=== PATIENT | female | born 1990 | race Caucasian/White ===

== ENCOUNTER 2018-03-02 17:14 | Emergency (ER) | payer MEDICAID, SELFPAY ==
[2018-03-02 17:19] VITALS: BP 132/84; PULSE 98; RESP 16; TEMP 36.8; O2SAT 100
--- NOTE | 2018-03-02 18:21 | ED.GENADUL_ITS ---
Disposition Clinical Impression: Skin infection Disposition: HOME Condition: Stable Instructions: Cellulitis (ED) Additional Instructions: Apply the antibiotic ointment to the affected areas 2-3 times daily. If you do not have any improvement in symptoms, or becomes worse, start the oral antibiotics. If at any time you have significant worsening of symptoms such as fever, significant increase of pain, redness or swelling, return immediately to the emergency department. Prescriptions: Cephalexin [Keflex] 500 mg PO QID 7 Days capsule Mupirocin 2% Oint. [Bactroban 2% Ointment] 1 gm TP TID #1 tube Medical Decision Making - Medical Decision Making 27-year-old female presents with 2 lesions on her left upper extremity and into her left axilla for the past 3 days. She is 10 days status post a tattoo over left upper arm. One lesion appears in the distal aspect of the tattoo and the other is on her chest wall under her axilla. They appear very similar. There is no fluctuance or induration. As they are mildly tender, erythematous with a central open partial, they appear likely infectious. There is no indication for acute drainage at this time as they are flat and a small area in center that can be open to drainage. Patient appears nontoxic. She is afebrile. Antibiotic ointment placed to areas. Patient given prescription for mupirocin to use 2-3 times daily. She was instructed to start the oral antibiotic if she has no improvement or she has worsening of symptoms with topical antibiotic. Patient was placed on care management list to arrange for a follow-up appointment for reevaluation within the next week. She was instructed to return here with any worsening symptoms per History of Present Illness - General Chief complaint: RashLesion Stated complaint: UNKNOWN Time Seen by Provider: 03/02/18 17:28 Source: patient Mode of arrival: ambulatory Limitations: no limitations - History of Present Illness Initial comments: Patient is a 27-year-old female who presents with 2 areas of redness on her left upper extremity and under her arm for the past 3 days. She had a tattoo on her left upper arm 10 days ago. Patient states she has had some pain. She admits to some clear drainage from the center of these areas. She denies any known fever. - Related Data Cephalexin [Keflex] 500 mg PO QID 7 Days capsule 03/02/18 Mupirocin 2% Oint. [Bactroban 2% Ointment] 1 gm TP TID #1 tube 03/02/18 Allergies Allergy/AdvReac Type Severity Reaction Status Date / Time No Known Allergies Allergy Unverified 03/02/18 17:24 Review of Systems Constitutional: denies: chills, fever Eyes: denies: eye pain ENT: denies: ear pain, dental pain Respiratory: denies: cough, shortness of breath Cardiovascular: denies: chest pain, dyspnea on exertion Gastrointestinal: denies: abdominal pain, nausea, vomiting Genitourinary: denies: urgency, dysuria, frequency Musculoskeletal: denies: back pain Skin: rash. denies: lesions Neurological: denies: headache, weakness, numbness Past Medical History - Past Medical History Medical history: no medical history Surgical history: no surgical history - Social History Smoking status: never smoker Alcohol use: occasionally Drug use: marijuana General Exam - General Limitations: no limitations General appearance: alert, in no apparent distress - Eye Eye exam: Present: EOMI - Cardiovascular Cardiovascular Exam: Present: regular rate, normal rhythm. Absent: bradycardia , tachycardia - GI/Abdominal GI/Abdominal exam: Present: soft, normal bowel sounds. Absent: distended, tenderness, guarding, rebound, rigid - Extremities Exam Extremities exam: Present: normal capillary refill, other (2 areas of approximately 2 x 3 cm of minimally raised erythema with a 3 mm central open wound draining clear drainage with one located at the distal aspect of the tattoo in the left upper arm and one located near the chest wall under the left axilla. Both lesions appear very similar. There is no fluctuance, induration, bleeding or pustules. Left radial pulse intact. ) - Neurological Exam Neurological exam: Present: alert, oriented X3 - Psychiatric Psychiatric exam: Present: normal affect Course Vital Signs - 24 hr 03/02/18 17:19 Temperature 98.2 F Pulse 98 H Respiratory 16 Rate Blood Pressure 132/84 Pulse Oximetry 100
--- NOTE | 2018-03-03 08:46 | PDOC.ERCMPRO ---
Care Management Progress Note 03/03-Dr. 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 Referral faxed to [facility] this am.
--- NOTE | 2018-03-03 08:48 | CMPROGNOTE_ITS ---
Care Management Progress Note 03/03-Dr. 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 Referral faxed to [facility] this am.
== END 2018-03-02 18:29 | disposition home or self-care (01) ==
LOC: ER 10-13 20:59
PROVIDERS: Emergency Provider Physician Assistant
DX: L08.9 Local infection of the skin and subcutaneous tissue, unspecified (principal)
CPT/HCPCS: 99283

== ENCOUNTER 2019-09-06 15:23 | Emergency (ER) | payer MEDICAID, SELFPAY ==
[2019-09-06 15:36] VITALS: BP 134/77; PULSE 101; RESP 18; TEMP 36.7; O2SAT 99
--- NOTE | 2019-09-06 15:54 | ED.GENADUL_ITS ---
Discharge Plan Disposition Patient Disposition: HOME Condition: Good Discharge Details Chief Complaint: Sorethroat Clinical Impression: Strep throat Primary Care Provider: Eileen Venegas ED Provider: Bart Ramirez Home Meds and New Rx's Prescriptions: New amoxicillin 500 mg capsule 500 mg PO BID Qty: 20 RF: 0 loratadine 10 mg capsule 10 mg PO DAILY Qty: 10 RF: 0 No Action mupirocin 22 GM ointment 1 gm Topical TID Qty: 1 RF: 0 cephalexin [Keflex] 500 MG capsule 500 mg PO QID 7 Days RF: 0 Discharge Instructions Instructions: Strep Throat (ED) Additional Instructions: At this time you have strep throat. Please take the antibiotic as directed. Please take the loratadine to help with the congestion. Please take Tylenol Motrin as needed for pain. If you notice any worsening of your symptoms, or any new symptoms such as vomiting, diarrhea, fever, chills, shortness of breath, chest pain, numbness, weakness, or fainting , please return immediately to the emergency department for reevaluation. Please follow up with your primary care provider as soon as possible for reassessment and reevaluation. As always, it was a pleasure participating in your medical care today. Referrals: Eileen Venegas [Primary Care Provider] - Discharge Data Discharge Date/Time-TO BE ENTERED AT DEPARTURE: 09/06/19 16:07 Medical Decision Making This is a 29-year-old female who presents with 2 days of sore throat, and mild ear pressure. Exam demonstrates erythema in the posterior oropharynx, no concerning red flags of tonsillar enlargement or peritonsillar abscess. No evidence of airway compromise whatsoever, no evidence of clinical meningitis. Signs and symptoms are clinically consistent with strep throat as her strep test is also positive. Will treat with amoxicillin, recommend continue Tylenol and Motrin, in addition to loratadine for congestion. Discussed red flags which to return I have extensively reviewed the treatment plan and discharge instructions with the patient and their family. I have addressed all patient concerns at this time. The patient and family was made aware of what symptoms to monitor for that would warrant a return to the emergency department. Discussed the plan with the patient and family, they demonstrate verbal understanding and agreement with our assessment and plan at this time. HPI General Date/Time Provider Initiated Documentation: 02/05/20 15:47 . HPI Narrative: This is a 29-year-old female who presents today for evaluation of sore throat, bilateral ear congestion for the last 2 days. She denies fever, headache or neck pain. She denies chest pain or cough. 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 She has no other complaints at this time. She denies any severe fatigue, or abdominal pain, nausea vomiting or diarrhea. Related Data Home Medications Medication Instructions Recorded Confirmed cephalexin [Keflex] 500 mg PO QID 7 Days capsule 03/02/18 mupirocin 1 gm TOPICAL TID #1 tube 03/02/18 amoxicillin 500 mg PO BID #20 cap 09/06/19 loratadine 10 mg PO DAILY #10 cap 09/06/19 Previous Rx's Medication Instructions Recorded cephalexin [Keflex] 500 mg PO QID 7 Days capsule 03/02/18 mupirocin 1 gm TOPICAL TID #1 tube 03/02/18 amoxicillin 500 mg PO BID #20 cap 09/06/19 loratadine 10 mg PO DAILY #10 cap 09/06/19 Allergies Allergy/AdvReac Type Severity Reaction Status Date / Time No Known Allergies Allergy Unverified 03/02/18 17:24 General Stated Complaint: Sorethroat EDMAR: 4 Review of Systems All systems reviewed & are unremarkable except as noted in HPI and below PFSH Social History Smoking/Tobacco Use Status: Current every day Tobacco Type: cigarettes Drug use: Occasionally Substance use type: marijuana Do you feel safe at home: Yes Do you feel safe in your relationship?: Yes Exam Narrative Exam Narrative: 1.Const: Well-nourished, Well-developed, appearing stated age 2.Eyes: PERRL, no conjunctival injection, and symmetrical lids. 3.ENT: Atraumatic external nose and ears. Moist MM. Neck: Symmetric, trachea midline, No thyromegaly. Tympanic membranes demonstrate a very small amount of clear fluid, no purulent effusion. No tympanic membrane rupture discharge. Posterior oropharynx is notably erythematous, minimal tonsillar enlargement, no unilateral uvular deviation or significant tonsillar swelling. Patient demonstrates good movement of cervical neck. There is no nuchal rigidity, no nuchal tenderness. Patient is able to flex the neck without any difficulty or significant pain. Negative Kernig's and Brudzinski sign. 4.CVS: +S1/S2, No murmurs or gallops. Peripheral pulses 2+ and equal in all extremities. Brisk capillary refill in all extremities. 5.RESP: Unlabored respiratory effort. Clear to auscultation bilaterally. No wheezes rales or rhonchi 6.GI: Soft, Nontender/Nondistended, No hepatosplenomegaly. No guarding or rebound. 7.MSK: Normocephalic/Atraumatic, Extremities w/o deformity or ttp No cyanosis or clubbing, Normal movement of all extremities 8.Skin: Warm, Dry. No rashes or lesions. 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 Sensation grossly intact, no focal neurologic deficits. 10.Psych: (AAO) x3. Appropriate mood and affect Course Vital Signs Vital signs: Vital Signs Temperature 36.7 C 09/06/19 15:36 Pulse 101 H 09/06/19 15:36 Respiratory Rate 18 09/06/19 15:36 Blood Pressure 134/77 09/06/19 15:36 Pulse Oximetry 99 09/06/19 15:36 Temperature 36.7 C 09/06/19 15:36 Temperature Source Skin 09/06/19 15:36 Pulse 101 H 09/06/19 15:36 Respiratory Rate 18 09/06/19 15:36 Respiratory Effort Non-Labored 09/06/19 15:38 Blood Pressure 134/77 09/06/19 15:36 Blood Pressure Position Sitting 09/06/19 15:36 Pulse Oximetry 99 09/06/19 15:36 Oxygen Delivery Method Room Air 09/06/19 15:36 Oxygen Flow Rate 0 09/06/19 15:36 Pain Level 7 09/06/19 15:36 Lab/Test Results Lab/Test Results: POC Strep Test-GRAYSON(Rapid) Start: 09/06/19 15:51 Freq: Status: Active Protocol: Document 09/06/19 15:51 DB (Rec: 09/06/19 15:51 DB [id number]) Strep test-GRAYSON(Rapid)-POC POC-Strep test-GRAYSON (Rapid) Positive POC-Strep test-GRAYSON (Rapid) Positive
== END 2019-09-06 16:07 | disposition home or self-care (01) ==
PROVIDERS: Emergency Provider Student in an Organized Health Care Education/Training Program; PCP Nurse Practitioner Family
DX: J02.0 Streptococcal pharyngitis (principal); H93.8X3 Other specified disorders of ear, bilateral
CPT/HCPCS: 87880; 99283

== ENCOUNTER 2020-03-29 11:51 | Outpatient (CLI) | payer MEDICAID, SELFPAY ==
[2020-04-01 08:18] LABS: SARS-CoV-2 RNA Undetected (Undetected); SARS-CoV-2 Specimen Source Nasopharynx
== END 2020-03-29 12:11 ==
PROVIDERS: PCP Nurse Practitioner Family; Visit Provider Nurse Practitioner Family
DX: Z11.59 Encounter for screening for other viral diseases (principal); J00 Acute nasopharyngitis [common cold]
CPT/HCPCS: U0003

== ENCOUNTER 2020-06-17 16:58 | Outpatient (REF) | payer MEDICAID, SELFPAY ==
[2020-06-20 14:48] LABS: Patient Race White; SARS-CoV-2 RNA Undetected (Undetected); SARS-CoV-2 Specimen Source Nasal
== END 2020-06-17 17:18 ==
LOC: NCHCN 16:58
PROVIDERS: PCP Nurse Practitioner Family; Visit Provider Nurse Practitioner Family
DX: Z20.828 Contact with and (suspected) exposure to other viral communicable diseases (principal)
CPT/HCPCS: U0003

== ENCOUNTER 2021-09-19 12:24 | Outpatient (REF) | payer MEDICAID, SELFPAY ==
--- NOTE | 2021-09-19 11:15 | PAPFT_PTH ---
PATIENT: Princess Cage LOC: [facility] U#:[id number] AGE/SX: 31/F ROOM: RE09/19/[address]: Eileen Venegas : 1990 BED: DIS: 09/19/2021 SPEC #: [id number] RECD: 09/19/21 17:36 STATUS: DARION REPerfecto #: [id number] SARA: 09/19/21 11:[address]: Eileen Venegas DEPT: [facility] Cytology RECD BY: Kayley Carter Tissues: 1 - CX/ENDOCX FOR PAP SMEARS Procedures: PAP THIN PREP/UVM Screening Comments: [id number] (CHLAMYDIA/GC)
[2021-09-22 15:34] LABS: Chlamydia Result Negative (Negative); GC Result Negative (Negative)
== END 2021-09-19 12:25 | disposition home or self-care (01) ==
LOC: NCHCN 12:24
PROVIDERS: PCP Nurse Practitioner Family; Visit Provider Nurse Practitioner Family
DX: Z12.4 Encounter for screening for malignant neoplasm of cervix (principal); Z11.3 Encounter for screening for infections with a predominantly sexual mode of transmission
CPT/HCPCS: 87491; 87591; 88142

== ENCOUNTER 2022-04-30 16:57 | Outpatient (REF) | payer MEDICAID, SELFPAY ==
[2022-04-30 18:36] LABS: Calculated LDL 188 mg/dL (<100); Cholesterol 303 mg/dL (<200); HDL Cholesterol 96 mg/dL (40-60); Triglyceride 99 mg/dL (<150)
[2022-05-05 10:11] LABS: Factor V Leiden(R506Q) Mut Negative (Negative)
== END 2022-04-30 16:58 | disposition home or self-care (01) ==
LOC: NCHCN 16:57
PROVIDERS: PCP Nurse Practitioner Family; Visit Provider Nurse Practitioner Family
DX: D68.9 Coagulation defect, unspecified (principal); E66.9 Obesity, unspecified
CPT/HCPCS: 80061; 81241

== ENCOUNTER 2023-01-30 15:18 | Emergency (ER) | payer MEDICAID, SELFPAY ==
[2023-01-30 15:20] VITALS: BP 162/84; PULSE 111; RESP 16; TEMP 37.2; O2SAT 97
--- NOTE | 2023-01-30 15:30 | DI.RAD_ITS ---
Exam(s) XR ANKLE RT COMPLETE EXAM: XR ANKLE RT COMPLETE CLINICAL HISTORY: right ankle pain. TECHNIQUE: 2D digital imaging was performed of the right ankle. Four images were obtained. AP, lat eral and oblique views were obtained. COMPARISON: No exams were available for comparison FINDINGS: BONES: There is an acute comminuted fracture of the distal fibula. The fracture line medially is at the level of the ankle mortise. There is widening of the medial joint space. No bony destructive le nolan is seen. JOINTS: The ankle mortise is normally aligned. SOFT TISSUE: There is soft tissue swelling of the ankle particularly laterally. IMPRESSION: 1. Acute comminuted fracture of the distal fibula as described. 2. There is mild widening of the medial ankle mortise. DATA REPOSITORY: RADIATION DOSE DELIVERED:
--- NOTE | 2023-01-30 15:43 | ED.GENADUL_ITS ---
Discharge Plan Disposition Patient Disposition: Home Condition: Stable Discharge Details Clinical Impression: Closed right fibular fracture Primary Care Provider: Eileen Venegas ED Provider: Sarath Booker Home Meds and New Rx's Prescriptions: Continued fluoxetine 40 mg capsule 20 mg PO DAILY loperamide 2 mg capsule 2 mg PO Q6H PRN albuterol sulfate [Ventolin HFA] 90 mcg/actuation HFA aerosol inhaler 2 puff inhalation Q6H PRN albuterol sulfate [Ventolin HFA] 90 mcg/actuation HFA aerosol inhaler 2 puff inhalation Q6H PRN mupirocin 22 GM ointment 1 g Topical TID Qty: 1 0RF Discharge Instructions Instructions: Leg Fracture (ED) Additional Instructions: call orthopedics for an appointment for follow up if you feel more ill or have severe worsening pain return to the emergency department Referrals: Krishna Everett MD [ [facility] STAFF PHYSICIAN] - Medical Decision Making 32 yo female who comes in with right ankle pain. She states on she got angry and kicked a trash can while wearing boots with her right foot. Denies falls or other injuries, has had lateral ankle pain since so came here today. Her right ankle is swollen and has ecchymosis. She has tenderness over the lateral malleolus, she does have intact rom of the ankle and normal sensation and pulses in the foot and has no tenderness in the foot, toes. negative t hompson test. Suspect sprain vs contusion, will obtain xrays of the ankle to evaluate for fracture. xray on my read shows fibula fracture, pt stable, will place in walking boot and crutches to use, will refer to ortho, return precautions given Differential Diagnosis Differential Diagnosis: sprain, strain, fracture Imaging Data Radiologic Study: Attestation: I personally reviewed and interpreted this imaging study as follows: Imaging: X-Ray My impression: fibula fracture HPI General Date/Time Provider Initiated Documentation: 01/30/23 15:31 . Limitations to Documentation: no limitations . Information obtained by: patient . History of Present Illness 32 year old F presents to the emergency department with the chief complaint of right ankle pain, described as moderate, Patient reports no radiation. Patient started experiencing this day(s) (2) and it has been constant. Rest improves symptom(s), Movement worsens symptoms . Patient notes no other symptoms.. Patient did receive the following treatments prior to arrival, NSAID Related Data Home Medications Medication Instructions Recorded Confirmed mupirocin 2 % topical ointment 1 g topical TID #1 tube 03/02/18 11/25/21 albuterol sulfate 90 mcg/actuation 2 puff inhalation Q6H PRN 10/16/21 11/25/21 aerosol inhaler (Ventolin HFA) fluoxetine 40 mg capsule 20 mg PO DAILY 10/16/21 01/30/23 loperamide 2 mg capsule 2 mg PO Q6H PRN 10/16/21 albuterol sulfate 90 mcg/actuation 2 puff inhalation Q6H PRN 10/20/21 01/30/23 aerosol inhaler (Ventolin HFA) Previous Rx's Medication Instructions Recorded mupirocin 2 % topical ointment 1 g topical TID #1 tube 03/02/18 Allergies Allergy/AdvReac Type Severity Reaction Status Date / Time latex gloves Allergy Uncoded 01/30/23 15:28 General Stated Complaint: Orthopedic EDMAR: 3 Review of Systems All systems reviewed & are unremarkable except as noted in HPI and below Constitutional Constitutional: Denies chills, Denies fever(s) and Denies weakness Eyes Eyes: Denies loss of vision ENT Ears, Nose, Mouth, and Throat: Denies change in voice Cardiovascular Cardiovascular: Denies chest pain and Denies dyspnea Respiratory Respiratory: Denies cough and Denies dyspnea Gastrointestinal Gastrointestinal: Denies abdominal pain, Denies nausea and Denies vomiting Neurologic Neurologic: Denies loss of vision and Denies weakness PFSH All Active Problems (Updated 01/30/23 @ 16:24 by Sarath Booker MD) Closed right fibular fracture (Acute) Crepitus of right TMJ on opening of jaw (Acute) Tobacco abuse (Acute) Abnormal auditory perception of right ear (Acute) Strep throat (Acute) Medical History Breast lesion Clotting disorder Depression Diarrhea Hallux valgus Hearing deficit Pain in right hip Pelvic pain Rectal pain Seborrhea capitis Skin irritation Smoker Suicidal thoughts Surgical History History of wisdom tooth extraction Social History Smoking/Tobacco Use Status: Current every day Tobacco Type: cigarettes Smoking packs per day: 1 Smoking cigarettes per day: 20.0 Years smoked: 10 Smoking pack-years: 10.00 Smoking risk assessment performed?: Yes Alcohol Intake: current Alcohol Intake frequency: 0-2 drinks per day Drug use: Occasionally Substance use type: marijuana Pets and animals: Yes Pets and animals: cat(s) and dog(s) Do you feel safe at home: Yes Do you feel safe in your relationship?: Yes Exam Const General: no acute distress Orientation: alert HENMT Head: normal to inspection Ears: external ears normal General nose exam: external nose normal Mouth: moist mucous membranes Eyes General: appearance normal, both eyes and all related structures Neck Neck: normal visual inspection Resp Effort & Inspection: normal respiratory effort and able to speak in complete sentences Cardio Rate: regular rate Skin General skin exam: no rashes or lesions noted Neuro General: patient alert and patient oriented x3 Extrem General: full ROM and capillary refill normal Psych Mental Status: mental status grossly normal Course Vital Signs Vital signs: Vital Signs Temperature 37.2 C 01/30/23 15:20 Pulse 111 H 01/30/23 15:20 Respiratory Rate 16 01/30/23 15:20 Blood Pressure 162/84 H 01/30/23 15:20 Pulse Oximetry 97 01/30/23 15:20 Temperature 37.2 C 01/30/23 15:20 Temperature Source Skin 01/30/23 15:20 Pulse 111 H 01/30/23 15:20 Respiratory Rate 16 01/30/23 15:20 Respiratory Effort Normal 01/30/23 15:25 Blood Pressure 162/84 H 01/30/23 15:20 Pulse Oximetry 97 01/30/23 15:20 Oxygen Delivery Method Room Air 01/30/23 15:20 Oxygen Flow Rate 0 01/30/23 15:20 PAWSS Have you Been Recently Intoxicated or Drunk Within the Last 30 days?: Yes Have you Ever Experienced Previous Episodes of Alcohol Withdrawal?: No Have you ever Experienced Withdrawal Seizures?: No Have you ever Experienced Delirium Tremens(DT)s?: No Have you ever undergone Alcohol Rehabilitation Treatment (i.e, inpt ot outpatient treatment programs)?: No Have you ever Experienced Blackouts?: No Have you ever Combined Alcohol with other Downers within the last 90 days?: No Have you ever Combined Alcohol with any other Substance of Abuse during the last 90 days?: Yes Positive Blood Alcohol level on Presentation? [PCS.BAL]: No Evidence of Increased Autonomic Activity (i.e. HR>120, tremor, sweating, agitation, nausea)?: No Result: 3
[2023-01-30] MEDS: Acetaminophen 500 MG TAB 1000 MG PO (15:44)
--- NOTE | 2023-01-30 16:41 | DI.VRAD_ITS ---
PROCEDURE INFORMATION: Exam: XR Right Ankle Exam date and time: 01/30/2023 3:57 PM Age: 32 years old Clinical indication: Other: Right ankle pain TECHNIQUE: Imaging protocol: Radiologic exam of the right ankle. 4image(s) are provided. Views: 3 or more views. COMPARISON: No relevant prior studies available. FINDINGS: Bones/joints: Ankle mortise alignment is maintained. There is an oblique fracture demonstrated of the distal fibular shaft. This demonstrates some separation and slight fragmentation of the superior most aspect of the fracture fragment best visualized on the lateral view. The adjacent tibial margins appear maintained. There is some subtle widening although may be rotation related about the medial aspect of the ankle mortise. Some ligamentous injury could also present in this fashion. There is some questionable curvilinear calcification of the talus margin on the oblique view although may be averaging related. No other displaced fracture or dislocation is appreciated. Soft tissues: There is soft tissue swelling demonstrated with lateral predominance. No radiopaque foreign body or subcutaneous emphysema is appreciated. IMPRESSION: There is an oblique and slightly fracture of the distal fibular shaft demonstrated with overall soft tissue swelling. Ankle mortise alignment appears grossly maintained although there appears to be subtle widening of the medial aspect and could also be seen with some ligamentous injury. Dictated and Authenticated by: Harman Henderson MD. Ordering:ISRAEL Clemens MD
[2023-01-30 16:52] VITALS: PULSE 88; RESP 17; O2SAT 97
== END 2023-01-30 16:56 | disposition home or self-care (01) ==
PROVIDERS: Emergency Provider Emergency Medicine; PCP Nurse Practitioner Family
DX: M25.571 Pain in right ankle and joints of right foot; S82.401A Unspecified fracture of shaft of right fibula, initial encounter for closed fracture; W22.8XXA Striking against or struck by other objects, initial encounter
CPT/HCPCS: 99283; 73610

== ENCOUNTER 2023-02-04 10:08 | Outpatient (CLI) | payer MEDICAID, SELFPAY ==
--- NOTE | 2023-02-04 08:53 | DI.RAD_ITS ---
Exam(s) XR ANKLE RT COMPLETE EXAM: XR ANKLE RT COMPLETE CLINICAL HISTORY: F/U FRACTURE. TECHNIQUE: 2D digital imaging was performed. Three views. COMPARISON: CR,XR XR ANKLE RT COMPLETE from 01/30/2023 FINDINGS: There has been no change in the alignment of the distal fibular fracture. A gravity stress view was performed which shows some widening of the medial ankle mortise. Soft tissue swelling remains presen t. DATA REPOSITORY: RADIATION DOSE DELIVERED:
== END 2023-02-04 10:09 | disposition home or self-care (01) ==
LOC: DIORS 10:08
PROVIDERS: PCP Nurse Practitioner Family; Referring Provider Nurse Practitioner Family; Visit Provider Physician Assistant
DX: S82.451D Displaced comminuted fracture of shaft of right fibula, subsequent encounter for closed fracture with routine healing (principal); X58.XXXD Exposure to other specified factors, subsequent encounter; R22.41 Localized swelling, mass and lump, right lower limb
CPT/HCPCS: 73610

== ENCOUNTER 2023-02-12 11:51 | Outpatient (CLI) | payer MEDICAID, SELFPAY ==
--- NOTE | 2023-02-12 09:15 | DI.RAD_ITS ---
Exam(s) XR ANKLE RT COMPLETE EXAM: XR ANKLE RT COMPLETE CLINICAL HISTORY: closd right fib fx. TECHNIQUE: 2D digital imaging was performed. COMPARISON: CR XR ANKLE RT COMPLETE from 02/04/2023 FINDINGS: Four views. Previously described distal fibular fracture appears unchanged and without further displacement. Mor tise appears unchanged. Talar dome unremarkable. IMPRESSION: No radiographic change compared to 02/04/2023. DATA REPOSITORY: RADIATION DOSE DELIVERED:
== END 2023-02-12 11:52 | disposition home or self-care (01) ==
LOC: DIORS 11:51
PROVIDERS: PCP Nurse Practitioner Family; Visit Provider Student in an Organized Health Care Education/Training Program
DX: S82.451D Displaced comminuted fracture of shaft of right fibula, subsequent encounter for closed fracture with routine healing (principal); X58.XXXD Exposure to other specified factors, subsequent encounter
CPT/HCPCS: 73610

== ENCOUNTER 2023-02-19 08:44 | Outpatient (CLI) | payer MEDICAID, SELFPAY ==
--- NOTE | 2023-02-19 08:00 | DI.RAD_ITS ---
Exam(s) XR ANKLE RT COMPLETE EXAM: XR ANKLE RT COMPLETE INDICATION: f/u R FIB FX. COMPARISON: CR XR ANKLE RT COMPLETE from 02/12/2023 TECHNIQUE: 2D digital imaging was performed. Two views. FINDINGS: There has been no change in the alignment of the distal fibular fracture. Some lateral soft tissue s welling remains present. No new abnormalities. DATA REPOSITORY: RADIATION DOSE DELIVERED:
== END 2023-02-19 08:45 | disposition home or self-care (01) ==
LOC: DIORS 08:44
PROVIDERS: PCP Nurse Practitioner Family; Referring Provider Nurse Practitioner Family; Visit Provider Physician Assistant
DX: S82.451D Displaced comminuted fracture of shaft of right fibula, subsequent encounter for closed fracture with routine healing; W19.XXXD Unspecified fall, subsequent encounter
CPT/HCPCS: 73610

== ENCOUNTER 2023-03-18 10:16 | Outpatient (CLI) | payer MEDICAID, SELFPAY ==
--- NOTE | 2023-03-18 09:00 | DI.RAD_ITS ---
Exam(s) XR ANKLE RT COMPLETE EXAM: XR ANKLE RT COMPLETE CLINICAL HISTORY: f/u R FIB FX. TECHNIQUE: 2D digital imaging was performed. COMPARISON: CR XR ANKLE RT COMPLETE from 02/19/2023 FINDINGS: 3 views Appearance of the fracture in distal fibula is unchanged. No widening of the ankle mortise evident o n these nonstress views. Talar dome unremarkable. Medial malleolus and posterior malleolus unremark able. No osseous tarsal coalition. IMPRESSION: No radiographic change compared to 02/19/2023. DATA REPOSITORY: RADIATION DOSE DELIVERED:
== END 2023-03-18 10:17 | disposition home or self-care (01) ==
LOC: DIORS 10:16
PROVIDERS: PCP Nurse Practitioner Family; Referring Provider Nurse Practitioner Family; Visit Provider Student in an Organized Health Care Education/Training Program
DX: S82.451D Displaced comminuted fracture of shaft of right fibula, subsequent encounter for closed fracture with routine healing (principal); X58.XXXD Exposure to other specified factors, subsequent encounter
CPT/HCPCS: 73610

== ENCOUNTER 2023-04-18 23:33 | Emergency (ER) | payer MEDICAID, SELFPAY ==
[2023-04-18 23:35] VITALS: BP 162/125; PULSE 117; RESP 16; TEMP 37.1; O2SAT 98
--- NOTE | 2023-04-18 23:36 | ED.GENADUL_ITS ---
Discharge Plan Disposition Patient Disposition: Home Discharge Details Clinical Impression: Alcohol intoxication, Laceration of forearm, right Primary Care Provider: Eileen Venegas ED Provider: Mariluz Cruz Home Meds and New Rx's Prescriptions: Continued fluoxetine 40 mg capsule 20 mg PO DAILY loperamide 2 mg capsule 2 mg PO Q6H PRN albuterol sulfate [Ventolin HFA] 90 mcg/actuation HFA aerosol inhaler 2 puff inhalation Q6H PRN albuterol sulfate [Ventolin HFA] 90 mcg/actuation HFA aerosol inhaler 2 puff inhalation Q6H PRN mupirocin 22 GM ointment 1 g Topical TID Qty: 1 0RF Discharge Instructions Instructions: Laceration (ED), Alcohol Intoxication (ED) Additional Instructions: Stable 7 to 10 days. Return for fever 100.4 or above, redness around laceration spreading up the arm, any other concerns. Return also for severe headache chest pain, belly pain, numbness, weakness, or any other concerns. Medical Decision Making The patient and her neighbor were updated on her test results which were negative. The patient was advised to have torin removed in 7-10 days. She will return for any symptoms of trauma which were discussed with her. Imaging Data Radiologic Study: Radiologist's impression: Neck and head CT showed no acute injury. HPI General Date/Time Provider Initiated Documentation: 04/18/23 23:36 . HPI Narrative: This 32-year-old female patient is brought in by a friend after falling down a flight of stairs. I asked the patient why she fell down the stairs and she said that she has been drinking tonight. She has a 3 to 4 cm laceration of the posterior aspect of the right forearm. This is gapinginto the fat. No tendons are visible. Her tetanus is up-to-date. She denies any other injury. She says she does not think that she had LOC. She initially told me that her boyfriend had witnessed the fall and he told me that he was not there when she fell. He told me that she called him to come and give her a ride. She has no headache, neck pain, or other injuries or complaints. She has been on anxiety and took her anxiety medicine this morning because she forgot Related Data Home Medications Medication Instructions Recorded Confirmed mupirocin 2 % topical ointment 1 g topical TID #1 tube 03/02/18 03/18/23 albuterol sulfate 90 mcg/actuation 2 puff inhalation Q6H PRN 10/16/21 03/18/23 aerosol inhaler (Ventolin HFA) fluoxetine 40 mg capsule 20 mg PO DAILY 10/16/21 03/18/23 loperamide 2 mg capsule 2 mg PO Q6H PRN 10/16/21 03/18/23 albuterol sulfate 90 mcg/actuation 2 puff inhalation Q6H PRN 10/20/21 03/18/23 aerosol inhaler (Ventolin HFA) Previous Rx's Medication Instructions Recorded mupirocin 2 % topical ointment 1 g topical TID #1 tube 03/02/18 Allergies Allergy/AdvReac Type Severity Reaction Status Date / Time latex gloves Allergy Uncoded 03/18/23 09:24 General EDMAR: 3 Review of Systems Constitutional Constitutional: Denies chills, Denies fever(s), Denies headache(s) and Denies weakness Eyes Eyes: Denies diplopia and Reports other (no redness) ENT Ears, Nose, Mouth, and Throat: Denies otalgia, Denies headache(s), Denies nasal congestion, Denies nasal discharge, Denies neck pain and Denies sore throat Cardiovascular Cardiovascular: Denies chest pain, Denies palpitations and Denies dyspnea Respiratory Respiratory: Denies cough and Denies dyspnea Gastrointestinal Gastrointestinal: Denies abdominal pain, Denies diarrhea, Denies nausea and Den ies vomiting Genitourinary Genitourinary: Denies dysuria Musculoskeletal Musculoskeletal: Denies myalgias, Denies muscle weakness, Denies neck pain, Denies numbness and Reports other (edema) Integumentary/Breasts Skin/Breast: Denies change in pigmentation and Denies rash Neurologic Neurologic: Denies headache(s), Denies numbness and Denies weakness Endocrine Endocrine: Denies palpitations PFSH All Active Problems (Updated 04/19/23 @ 01:29 by Mariluz Cruz MD) Alcohol intoxication (Acute) Laceration of forearm, right (Acute) Crepitus of right TMJ on opening of jaw (Acute) Tobacco abuse (Acute) Abnormal auditory perception of right ear (Acute) Strep throat (Acute) Medical History Breast lesion Clotting disorder Depression Diarrhea Hallux valgus Hearing deficit Pain in right hip Pelvic pain Rectal pain Seborrhea capitis Skin irritation Smoker Suicidal thoughts Surgical History History of wisdom tooth extraction Social History Smoking/Tobacco Use Status: Current every day Tobacco Type: cigarettes Smoking packs per day: 1 Smoking cigarettes per day: 20.0 Years smoked: 10 Smoking pack- years: 10.00 Smoking risk assessment performed?: Yes Alcohol Intake: current Alcohol Intake frequency: 0-2 drinks per day Drug use: Occasionally Substance use type: marijuana Pets and animals: Yes Pets and animals: cat(s) and dog(s) Do you feel safe at home: Yes Do you feel safe in your relationship?: Yes Exam Const General: no acute distress, well developed, well groomed and not in acute distress Nutritional Appearance: well nourished Orientation: alert and oriented x3 HENMT Head: normocephalic and atraumatic Ears: external ears normal General nose exam: external nose normal and nares normal Face and sinus: normal facial exam and sinuses nontender Mouth: oropharynx normal and moist mucous membranes Throat: posterior oropharynx normal Eyes Conjunctivae: other (mildly injected) Pupils: PERRL EOM: EOM intact bilaterally Neck Neck: full ROM, supple and other (collar placed on arrival) Chest Chest: normal inspection of the chest and normal palpation of entire chest wall Resp Effort & Inspection: normal respiratory effort Auscultation: clear to auscultation bilaterally Cardio Rate: regular rate Rhythm: regular rhythm Heart Sounds: no murmurs and no rubs GI Inspection: normal to inspection Palpation: soft, nontender and other (non distended) Auscultation: normal bowel sounds Back/Spine/Pelvis Back: no CVA tenderness Cervical Spine: No cervical spinal tenderness Thoracic/Lumbar Spine: No thoracic spinal tenderness and No lumbar spinal tenderness Pelvis: no pain with anterior-posterior compression Skin General skin exam: no rashes or lesions noted (except 3-4 cm gaping lac over posterior R forearm) and other (pink, warm, dry) Trauma: laceration (as noted) Neuro General: patient alert, patient awake and patient oriented x3 Cranial Nerves: PERRL and EOM intact bilaterally Speech: speech normal Gait: normal gait Motor: strength 5/5 throughout and other ([place]) Sensory Exam: no sensory deficits noted Extrem General: normal to inspection and full ROM Right upper extremity: full ROM (NTP) and elbow/forearm (3-4 cm lac posteriorly at prox jnct) Left upper extremity: normal to inspection and full ROM (NTP) Right lower extremity: normal to inspection and full ROM (NTP) Left lower extremity: normal to inspection and full ROM (NTP) Psych Mental Status: mental status grossly normal Speech and Movement: speech and movement normal Affect: normal affect
--- NOTE | 2023-04-18 23:51 | DI.CT_ITS ---
Exam(s) CT HEAD CERVICAL SPINE WO EXAM: CT HEAD CERVICAL SPINE WO CLINICAL HISTORY: fall down stairs, ETOH. TECHNIQUE: Imaging Protocol: Axial computed tomography images with coronal and sagittal reformatted images were created and reviewed COMPARISON: No exams were available for comparison FINDINGS: Head CT Ventricles and Extra axial spaces: Normal in size and morphology for the patient's age. Hemorrhage: None. Cerebral parenchyma: Normal. Midline shift: None. Brainstem/Cerebellum: Normal. Calvarium: Normal. Visualized Paranasal sinuses/Mastoids: Clear. Soft tissues: Unremarkable. Cervical Spine CT BONES: Vertebral body heights are maintained. Alignment is normal. There is no evidence of acute frac ture. No degenerative disc changes and facet degenerative changes are seen . SOFT TISSUES: No paraspinal hematoma. The airway appears intact. No pneumothorax is seen at the lung apices. IMPRESSION: Head CT: No acute abnormality. C-spine CT: no acute abnormality. RADIATION DOSE DELIVERED: 1,330.33mGy.cm Total DLP DATA REPOSITORY: All CT scans at this facility are submitted to the National Radiology Data Registry (NRDR) Dose Index Registry (DIR) with the [employer] (A[employer]). RADIATION OPTIMIZATION: All CT scans at this facility use at least one of these dose optimization te chniques: automated exposure control; mA and/or kV adjustment per patient size (includes targeted exa ms where dose is matched to clinical indication); or iterative reconstruction.
--- NOTE | 2023-04-19 01:23 | DI.VRAD_ITS ---
PROCEDURE INFORMATION: Exam: CT Head Without Contrast Exam date and time: 04/19/2023 12:04 AM Age: 32 years old Clinical indication: Injury or trauma; Blunt trauma (contusions or hematomas); Injury date: 04/18/23; Injury details: Fall down stairs, ETOH TECHNIQUE: Imaging protocol: Computed tomography of the head without contrast. Radiation optimization: All CT scans at this facility use at least one of these dose optimization techniques: automated exposure control; mA and/or kV adjustment per patient size (includes targeted exams where dose is matched to clinical indication); or iterative reconstruction. COMPARISON: No relevant prior studies available. FINDINGS: Brain: No acute intracranial hemorrhage, mass-effect, midline shift, or extra-axial collection is seen. The christianson white matter differentiation appears preserved. Cerebral ventricles: The ventricular system and basilar cisterns appear appropriate in size and configuration. Paranasal sinuses: The visualized paranasal sinuses appear well-aerated. Mastoid air cells: The mastoid air cells appear well-aerated. Auditory system: The middle ear cavities appear clear. Orbital cavities: The globes and intraorbital structures appear grossly intact. Bones/joints: The bony calvarium appears intact. No depressed skull fracture is seen. Soft tissues: No gross focal scalp hematoma is seen. IMPRESSION: No acute intracranial hemorrhage or depressed skull fracture. PROCEDURE INFORMATION: Exam: CT Cervical Spine Without Contrast Exam date and time: 04/19/2023 12:04 AM Age: 32 years old Clinical indication: Injury or trauma; Blunt trauma (contusions or hematomas); Injury date: 04/18/23; Injury details: Fall down stairs, ETOH TECHNIQUE: Imaging protocol: Computed tomography of the cervical spine without contrast. Radiation optimization: All CT scans at this facility use at least one of these dose optimization techniques: automated exposure control; mA and/or kV adjustment per patient size (includes targeted exams where dose is matched to clinical indication); or iterative reconstruction. COMPARISON: No relevant prior studies available. FINDINGS: Bones/joints: No acute cervical fracture or malalignment is seen. No significant cervical stenosis or foraminal narrowing is demonstrated. Lungs: The lung apices appear clear. Thyroid: The thyroid gland appears normal in size. Soft tissues: Within the limits of the exam, no gross soft tissue fluid collection is seen in the neck. IMPRESSION: No acute cervical fracture or malalignment is seen. Dictated and Authenticated by: Ayaz Spence MD. Ordering:DANIEL Mcgraw MD
[2023-04-19 01:34] VITALS: BP 132/72; PULSE 72; RESP 16; O2SAT 98
== END 2023-04-19 01:48 | disposition home or self-care (01) ==
PROVIDERS: Emergency Provider Emergency Medicine; PCP Nurse Practitioner Family
DX: S51.811A Laceration without foreign body of right forearm, initial encounter (principal); W26.8XXA Contact with other sharp object(s), not elsewhere classified, initial encounter; F10.929 Alcohol use, unspecified with intoxication, unspecified
CPT/HCPCS: 70450; 72125

== ENCOUNTER 2023-04-29 14:00 | Outpatient (CLI) | payer MEDICAID, SELFPAY ==
--- NOTE | 2023-04-29 13:45 | DI.RAD_ITS ---
Exam(s) XR ANKLE RT COMPLETE EXAM: XR ANKLE RT COMPLETE CLINICAL HISTORY: F/U FRACTURE. TECHNIQUE: 2D digital imaging was performed. COMPARISON: CR XR ANKLE RT COMPLETE from 03/18/2023 FINDINGS: 3 views The previously described fracture of the distal fibula appears stable. There is some mild callus for mation. Fracture line still evident but no further displacement nor significant widening of the ankl e mortise. Talar dome unremarkable. IMPRESSION: Appearance. DATA REPOSITORY: RADIATION DOSE DELIVERED:
== END 2023-04-29 14:01 | disposition home or self-care (01) ==
LOC: DIORS 14:01
PROVIDERS: PCP Nurse Practitioner Family; Visit Provider Physician Assistant
DX: S82.451D Displaced comminuted fracture of shaft of right fibula, subsequent encounter for closed fracture with routine healing (principal); X58.XXXD Exposure to other specified factors, subsequent encounter
CPT/HCPCS: 73610

== ENCOUNTER 2025-07-10 16:45 | Outpatient (REF) | payer BC, MEDICAID, SELFPAY ==
--- NOTE | 2025-07-10 14:50 | PAPFT_PTH ---
PATIENT: Princess Cage LOC: [facility]#:[id number] AGE/SX: 34/F ROOM: RE07/10/[address]: Eileen Venegas : 1990 BED: DIS: 07/10/2025 SPEC #: [id number] RECD: 07/11/25 13:06 STATUS: DARION REPerfecto #: [id number] SARA: 07/10/25 14:[address]: Eileen Venegas [facility]PT[facility] Cytology RECD BY: Kayley Carter Tissues: 1 - CX/ENDOCX FOR PAP SMEARS Procedures: PAP THIN PREP/UVM Screening HPV DNA PROBE Comments: [id number] (HPV 16 & 18/45) (CHLAMYDIA/GC)
[2025-07-10 21:05] LABS: HCT 44.9 % (36.0-46.0); HGB 15.4 g/dL (11.2-15.7); MCH 32.9 pg (27.0-33.0); MCHC 34.3 % (32.0-36.0); MCV 96 fL (80-95); MPV 8.9 fL (8.0-11.0); Platelet Count 382 10^3/uL (130-400); RBC 4.68 10^6/uL (3.93-5.22); RDW 12.0 % (11.7-14.6); RDW-SD 41.7 fL; WBC 8.80 10^3/uL (4.4-10.8)
[2025-07-10 21:26] LABS: ALT 65 U/L (10-49); AST 51 U/L (<34); Albumin 4.4 g/dL (3.2-5.0); Alkaline Phosphatase 55 U/L (46-116); Anion Gap 9.5 mmol/L (3-11); BUN 9 mg/dL (9-23); Bilirubin, Total 0.3 mg/dL (0.2-1.2); CO2 24.5 mmol/L (20.0-31.0); Calcium 9.4 mg/dL (8.3-10.6); Chloride 106 mmol/L (98-107); Cholesterol 310 mg/dL (<200); Glucose 84 mg/dL (74-106); HDL Cholesterol 84 mg/dL (>40); Potassium 4.2 mmol/L (3.5-5.1); Sodium 140 mmol/L (136-145); Total Protein 7.6 g/dL (5.7-8.2)
[2025-07-10 21:28] LABS: Hemoglobin A1C 4.8 % (<5.7)
[2025-07-11 18:40] LABS: HIV-1/2 Ag & Ab Screen Negative (Negative)
[2025-07-11 18:45] LABS: Hepatitis C Ab w Rflx HCV PCR Negative (Negative)
[2025-07-12 11:06] LABS: Syphilis Serology (RPR) Negative (Negative)
[2025-07-12 11:32] LABS: Chlamydia Result Negative (Negative); GC Result Negative (Negative)
== END 2025-07-10 16:46 | disposition home or self-care (01) ==
LOC: NCHCN 16:45
PROVIDERS: PCP Nurse Practitioner Family; Visit Provider Nurse Practitioner Family
DX: Z11.59 Encounter for screening for other viral diseases (principal); E66.9 Obesity, unspecified; Z00.00 Encounter for general adult medical examination without abnormal findings; Z12.4 Encounter for screening for malignant neoplasm of cervix
CPT/HCPCS: 80053; 80061; 85027; 86803; 87389; 87491; 87591; 88142; 83036; 86592; 87624